=== PATIENT | female | born 1985 | race Caucasian/White ===

== ENCOUNTER 2016-09-05 18:32 | Emergency (ER) | payer OTHER ==
[~2016-09-05] VITALS: Ht 167.6 cm; Wt 51.6 kg
[~2016-09-05 18:32] MED LIST: EXCEDRIN1 TABLET PO; EXPECTA PRENAT1 EACH PO; LEXAPRO20 MG PO; MOTRIN800 MG PO; OMNICEF300 M1 PO; ROXICET 5-3251 EACH PO; SEASONIQUE 01 TABLET PO; [UNRECOGNIZED DRUG - OTHER] TP
[2016-09-05] MEDS ORDERED: TOPIRAMATE50 MG PO (19:40)
[2016-09-05] MEDS ORDERED: ANTIANXIETY PO (19:42)
[2016-09-05] MEDS ORDERED: NAPROSYN500 MG PO (20:56)
[2016-09-05 21:22] VITALS: BP 113/71
== END 2016-09-05 21:23 | disposition home or self-care (01) ==
LOC: EME 18:32
DX: M77.52 Other enthesopathy of left foot and ankle (principal)
CPT/HCPCS: 73630; 99281; 99283

== ENCOUNTER → 2017-09-02 | Outpatient (CLI) | payer OTHER ==
[~2017-09-02] VITALS: Ht 165.1 cm; Wt 53.1 kg
[~2017-09-02] MED LIST changes: +ALAVERT10 M1 PO; +ALEVE220 MG PO; +IMITREX50 MG PO; +LEXAPRO10 MG PO; +MIDOL COMPLETE1 EACH PO; +MIRENA1 EACH IY; +MOTRIN IB200 MG PO; +NAPROSYN500 MG PO; +PRILOSEC20 MG PO; +PROMETHAZINE HC25 M1 PO; +PROVENTIL,2.5 MG/3 M IH; +TOPAMAX100 MG PO; +TOPIRAMATE50 MG PO; +VENTOLIN HFA18 GM IH
== END | disposition home or self-care (01) ==
LOC: AMB 07:00 → OPR 07:30
DX: R10.13 Epigastric pain (principal); K92.1 Melena; K64.8 Other hemorrhoids; R11.0 Nausea; J45.909 Unspecified asthma, uncomplicated; F41.9 Anxiety disorder, unspecified; L30.9 Dermatitis, unspecified; Z80.1 Family history of malignant neoplasm of trachea, bronchus and lung; Z82.5 Family history of asthma and other chronic lower respiratory diseases; Z82.49 Family history of ischemic heart disease and other diseases of the circulatory system; Z83.49 Family history of other endocrine, nutritional and metabolic diseases; Z88.0 Allergy status to penicillin; Z88.1 Allergy status to other antibiotic agents
CPT/HCPCS: 88305; 88342 TC; J3010